=== PATIENT | female | born 1985 | race Caucasian/White ===

== ENCOUNTER 2018-02-01 22:10 | Emergency (ER) | payer OTHER ==
[~2018-02-01] VITALS: Ht 157.5 cm; Wt 57.2 kg
[2018-02-01] MEDS ORDERED: TOPROL XL50 M1 (22:31)
[2018-02-02] MEDS ORDERED: URIN D.S. TABL1 EACH PO (03:22)
[2018-02-02] MEDS ORDERED: CEFUROXIME500 MG PO (03:22)
== END 2018-02-02 03:20 | disposition home or self-care (01) ==
LOC: ER 22:10
DX: N39.0 Urinary tract infection, site not specified (principal)